=== PATIENT | female | born 1960 | race Caucasian/White ===

== ENCOUNTER 2017-02-21 09:00 | Outpatient (CLI) | payer BC | END 2017-02-21 21:20 | disposition home or self-care (01) | LOC: SMA 09:00 | PROVIDERS: ATTEND Physician Assistant Medical | DX: R92.1 Mammographic calcification found on diagnostic imaging of breast (principal) | CPT/HCPCS: 76641; 77066 ==

== ENCOUNTER 2018-06-18 09:35 | Outpatient (CLI) | payer BC | END 2018-06-18 20:22 | disposition home or self-care (01) | LOC: SUS 09:35 | PROVIDERS: ATTEND Physician Assistant Medical | DX: R92.2 Inconclusive mammogram (principal) | CPT/HCPCS: 77066 ==

== ENCOUNTER 2020-01-20 08:01 | Outpatient (CLI) | payer BC | END 2020-01-20 20:50 | disposition home or self-care (01) | LOC: SMA 08:01 | PROVIDERS: ATTEND Family Medicine | DX: R92.1 Mammographic calcification found on diagnostic imaging of breast (principal) | CPT/HCPCS: 76641; 77066 ==

== ENCOUNTER 2021-09-13 10:45 | Outpatient (CLI) | payer BC | END 2021-09-13 20:41 | disposition home or self-care (01) | LOC: SMA 10:45 | PROVIDERS: ATTEND Family Medicine | DX: Z12.31 Encounter for screening mammogram for malignant neoplasm of breast (principal) | CPT/HCPCS: 77067 ==

== ENCOUNTER 2022-12-16 14:35 | Outpatient (CLI) | payer BC | END 2022-12-16 18:37 | disposition home or self-care (01) | LOC: SUS 14:35 | PROVIDERS: ATTEND Physician Assistant Medical | DX: Z12.39 Encounter for other screening for malignant neoplasm of breast (principal) | CPT/HCPCS: 76641; 77067 ==